=== PATIENT | female | born 1955 | race Caucasian/White ===

== ENCOUNTER 2019-01-18 15:27 | Emergency (ER) | payer BC ==
[2019-01-18 17:15] LABS: ABS Eosinophils 0.1 10^3/ul (0-0.6); ABS Monocytes 0.5 10^3/ul (0-0.8); ABS Neutrophils 3.1 10^3/ul (1.5-7.7); Eosinophil % 0.9 %; Hematocrit 38 % (35-47); Hemoglobin 12.9 g/dL (12.0-16.0); Lymphocyte % 35.7 %; Mean Corpuscular HGB Conc 34 g/dL (31-36); Mean Corpuscular Hemoglobin 29 pg (27-31); Mean Corpuscular Volume 87 fL (80-97); Mean Platelet Volume 7.9 fL (7.4-10.4); Nucleated Red Blood Cells % 0.1; Platelet Count 298 10^3/uL (150-450); Red Blood Count 4.41 10^6 /uL (3.70-4.87); Red Cell Distribution Width 15 % (10-15); White Blood Count 5.7 10^3/uL (3.5-10.8)
[2019-01-18 17:32] LABS: ALT 22 U/L (7-52); AST 29 U/L (13-39); Albumin 3.9 g/dL (3.2-5.2); Albumin/Globulin Ratio 1.2 (1-3); Alkaline Phosphatase 58 U/L (34-104); Anion Gap 4 mmol/L (2-11); BUN/Creatinine Ratio 15.7 (8-20); Blood Urea Nitrogen 14 mg/dL (6-24); C Reactive Protein < 1.00 mg/L (<8.01); CO2 Carbon Dioxide 29 mmol/L (22-32); Calcium 9.4 mg/dL (8.6-10.3); Chloride 105 mmol/L (101-111); EGFR African American 77.8 (>60); EGFR Non-African American 64.3 (>60); Globulin 3.3 g/dL (2-4); Glucose 99 mg/dL (70-100); Sodium 138 mmol/L (135-145); Total Protein 7.2 g/dL (6.4-8.9)
--- NOTE | 2019-01-18 17:44 | ED ---
Abdominal Pain/Female - HPI Summary HPI Summary: The patient is a 63 y/o F presenting to [facility] from Urgent Care with a chief complaint of sudden onset left flank pain that radiates to the LLQ starting yesterday morning. The pain intermittently worsens with a sharp sensation. Currently, the pain is rated 7/10 in severity. There are no aggravating or alleviating factors. She reports nausea without vomiting. She denies fevers, chills, urinary symptoms, diarrhea, and constipation. No past medical hx. Surgical hx of T&A. Nonsmoker, no EtOH, no substance use. - History of Current Complaint Chief Complaint: EDFlankPain Stated Complaint: "BACK PAIN PER PT" Time Seen by Provider: 01/18/19 17:01 Hx Obtained From: Patient Onset/Duration: Sudden Onset, Lasting Days - since yesterday morning, Still Present Timing: Days Severity Initially: Mild Severity Currently: Moderate Pain Intensity: 7 Pain Scale Used: 0-10 Numeric Location: Flank - left Radiates: Yes Radiates to: LLQ Character: Sharp Aggravating Factor(s): Nothing Alleviating Factor(s): Nothing Associated Signs and Symptoms: Positive: Nausea, Other: - NEGATIVE: chills. Negative: Fever, Constipation, Urinary Symptoms, Vomiting, Diarrhea Allergies/Adverse Reactions: Allergies Allergy/AdvReac Type Severity Reaction Status Date / Time gluten Allergy See Comment Verified 01/18/19 15:33 Penicillins Allergy Hives Verified 01/18/19 15:33 Home Medications: Home Medications Calcium Carb/Vit D3/Minerals [Calcium 600+D Plus Minerals Tb] 1 tab PO DAILY 11/03 [History Confirmed 01/18/19] Cholecalciferol (Vitamin D3) [Vitamin D3] 1 ml MC PRN 01/18/19 [History] L.acidoph,Paracasei, B.lactis [Probiotic] 1 each PO DAILY 01/18/19 [History Confirmed 01/18/19] Levothyroxine TAB* [Synthorid 112 MCG TAB*] 112 mcg PO 0800 01/18/19 [History Confirmed 01/18/19] PMH/Surg Hx/FS Hx/Imm Hx Endocrine/Hematology History: Denies: Hx Diabetes Cardiovascular History: Denies: Hx Hypercholesterolemia, Hx Hypertension - Surgical History Surgical History: Yes Surgery Procedure, Year, and Place: T&A - Immunization History Immunizations Up to Date: Yes Infectious Disease History: No Infectious Disease History: Denies: Traveled Outside the [place] in Last 30 Days - Family History Known Family History: Negative: Diabetes - Social History Alcohol Use: Rare Hx Substance Use: No Substance Use Type: Reports: None Hx Tobacco Use: No Smoking Status (MU): Never Smoked Tobacco Do You Chew or Dip Tobacco: No Have You Chewed or Dipped Tobacco in the LAST YEAR: No Have You Smoked in the Last Year: No Review of Systems Negative: Fever, Chills Positive: Abdominal Pain - left flank radiating to LLQ, Nausea, Other - NEGATIVE : constipation. Negative: Vomiting, Diarrhea Positive: no symptoms reported All Other Systems Reviewed And Are Negative: Yes Physical Exam - Summary Physical Exam Summary: VITAL SIGNS: Reviewed. GENERAL: Patient is a well-developed and nourished female who is lying comfortable in the stretcher. Patient is not in any acute respiratory distress. HEAD AND FACE: Normocephalic and atraumatic. EYES: PERRLA, EOMI x 2, No injected conjunctiva. EARS: Hearing grossly intact. Ear canals and tympanic membranes are WNL. MOUTH: Oropharynx within normal limits. NECK: Supple, trachea is midline, no adenopathy, no JVD. CHEST: Symmetric, no tenderness at palpation. LUNGS: Clear to auscultation bilaterally. No wheezing or crackles. CVS: RRR, S1 and S2 present, no murmurs or gallops appreciated. ABDOMEN: Soft, left flank tenderness. No left CVA tenderness. No signs of distention. Positive bowel sounds. No rebound, no guarding, and no masses palpated. No abdominal bruit or pulsations. EXTREMITIES: FROM in all major joints, no edema, no cyanosis or clubbing. NEURO: Alert and oriented x 3. No acute neurological deficits. Speech is normal. SKIN: Dry and warm. Triage Information Reviewed: Yes Vital Signs On Initial Exam: Initial Vitals Temp Pulse Resp BP Pulse Ox 99.3 F 60 14 137/91 99 01/18/19 15:29 01/18/19 15:29 01/18/19 15:29 01/18/19 15:29 01/18/19 15:29 Vital Signs Reviewed: Yes Diagnostics - Vital Signs Vital Signs Temp Pulse Resp BP Pulse Ox 01/18/19 15:29 99.3 F 60 14 137/91 99 - Laboratory Lab Results: Lab Results 01/18/19 01/18/19 01/18/19 Range/Units 17:08 17:08 17:08 WBC 5.7 (3.5-10.8) 10^3/uL RBC 4.41 (3.70-4.87) 10^6 /uL Hgb 12.9 (12.0-16.0) g/dL Hct 38 (35-47) % MCV 87 (80-97) fL MCH 29 (27-31) pg MCHC 34 (31-36) g/dL RDW 15 (10-15) % Plt Count 298 (150-450) 10^3/uL MPV 7.9 (7.4-10.4) fL Neut % (Auto) 54.1 % Lymph % (Auto) 35.7 % [place] % (Auto) 8.5 % Eos % (Auto) 0.9 % Baso % (Auto) 0.8 % Absolute Neuts (auto) 3.1 (1.5-7.7) 10^3/ul Absolute Lymphs (auto) 2.0 (1.0-4.8) 10^3/ul Absolute Monos (auto) 0.5 (0-0.8) 10^3/ul Absolute Eos (auto) 0.1 (0-0.6) 10^3/ul Absolute Basos (auto) 0.0 (0-0.2) 10^3/ul Absolute Nucleated RBC 0.0 10^3/ul Nucleated RBC % 0.1 Sodium 138 (135-145) mmol/L Potassium 4.0 (3.5-5.0) mmol/L Chloride 105 (101-111) mmol/L Carbon Dioxide 29 (22-32) mmol/L Anion Gap 4 (2-11) mmol/L BUN 14 (6-24) mg/dL Creatinine 0.89 (0.51-0.95) mg/dL Est GFR ( Amer) 77.8 (>60) Est GFR (Non-Af Amer) 64.3 (>60) BUN/Creatinine Ratio 15.7 (8-20) Glucose 99 (70-100) mg/dL Lactic Acid 0.6 (0.5-2.0) mmol/L Calcium 9.4 (8.6-10.3) mg/dL Total Bilirubin 0.50 (0.2-1.0) mg/dL AST 29 (13-39) U/L ALT 22 (7-52) U/L Alkaline Phosphatase 58 (34-104) U/L C-Reactive Protein < 1.00 (<8.01) mg/L Total Protein 7.2 (6.4-8.9) g/dL Albumin 3.9 (3.2-5.2) g/dL Globulin 3.3 (2-4) g/dL Albumin/Globulin Ratio 1.2 (1-3) Lipase 32 (11.0-82.0) U/L Result Diagrams: 01/18/19 17:08 01/18/19 17:08 Lab Statement: Any lab studies that have been ordered have been reviewed, and results considered in the medical decision making process. - CT Abd/Pel CT CT Interpretation Completed By: Radiologist Summary of CT Findings: No hydronephrosis or nephrolithiasis. Noncontrast CT pathology of the visualized abdomen or pelvis. Re-Evaluation - Re-Evaluation First Eval Re-Evaluation Time: 20:00 Change: Improved Comment: I discussed the results with the patient and discharge home. Abdominal Pain Fem Course/Dx - Course Course Of Treatment: The patient is a 63 y/o F presenting to [facility] from Urgent Care with a chief complaint of sudden onset left flank pain that radiates to the LLQ starting yesterday morning. The pain intermittently worsens with a sharp sensation. Currently, the pain is rated 7/10 in severity. There are no aggravating or alleviating factors. She reports nausea without vomiting. She denies fevers, chills, urinary symptoms, diarrhea, and constipation. No past medical hx. Surgical hx of T&A. Nonsmoker, no EtOH, no substance use. Blood work without any significant abnormality, urinalysis is negative for UTI. Abdominopelvic CT impression: No hydronephrosis or nephrolithiasis. The patient declined any IV fluids and pain medication. It seems that the patient doesnt have a kidney stone so it is likely that she has musculoskeletal pain. Therefore , the patient was discharged home with follow-up with PCP. I discussed all the findings and test results with the patient. Patient was instructed to return to the emergency room immediately if any of the symptoms return worsens. Plan of care was discussed with the patient and understands and agrees. All questions were answered at patient satisfaction. There were no further complaints or concerns. Lung exam before discharge: CTA B/L. Good air exchange. No wheezing or crackles heard. CVS: S1 and S2 present. No murmurs appreciated. Patient is alert and oriented x 3. Patient is hemodynamically stable. Patient will be discharged home with follow up PCP in the next 2-3 days. - Diagnoses Provider Diagnoses: Flank pain, Back pain Discharge - Sign-Out/Discharge Documenting (check all that apply): Patient Departure - Patient will be discharged home. Patient Received Moderate/Deep Sedation with Procedure: No - Discharge Plan Condition: Stable Disposition: HOME Prescriptions: Cyclobenzaprine TAB* [Flexeril 10 MG TAB*] 10 mg PO TID PRN #12 tab PRN Reason: Spasms - Back Naproxen TAB* [Naprosyn 250 mg TAB*] 500 mg PO Q8H PRN #15 tab PRN Reason: Pain Patient Education Materials: Flank Pain (ED) Referrals: [facility] [place]] - 3 Days Additional Instructions: Please take medications as prescribed. Follow up with primary care provider in 2-3 days. RETURN TO THE EMERGENCY DEPARTMENT FOR ANY NEW OR WORSENING SYMPTOMS. - Billing Disposition and Condition Condition: STABLE Disposition: Home - Attestation Statements Document Initiated by Cinda: Yes Documenting Scribe: Jackelyn Pritchett Provider For Whom Cinda is Documenting (Include Credential): Dr. Vinod Omalley MD Scribe Attestation: Jackelyn Lagunas scribed for Dr. Vinod Omalley MD on 01/18/19 at 2010. Scribe Documentation Reviewed: Yes Provider Attestation: The documentation as recorded by the Jackelyn roman accurately reflects the service I personally performed and the decisions made by me, Dr. Vinod Omalley MD Status of Scribtoby Document: Ready
[2019-01-18 18:34] LABS: Urine Appearance Clear; Urine Bilirubin Negative (Negative); Urine Blood Negative (Negative); Urine Color Straw; Urine Glucose Negative (Negative); Urine Ketones Negative (Negative); Urine Nitrite Negative (Negative); Urine Protein Negative (Negative); Urine Specific Gravity 1.003 (1.010-1.030); Urine Urobilinogen Negative (Negative)
[2019-01-18 20:17] VITALS: BP 134/80
== END 2019-01-18 20:16 | disposition home or self-care (01) ==
LOC: ED 15:27
DX: R10.84 Generalized abdominal pain (principal); M54.9 Dorsalgia, unspecified; R11.0 Nausea; Z88.0 Allergy status to penicillin
CPT/HCPCS: 36415; 74176; 80053; 81003; 83605; 83690; 85025; 86140; 99283